=== PATIENT | male | born 1995 ===

== ENCOUNTER 2024-05-28 17:36 | Emergency (ER) | payer OTHER ==
[~2024-05-28] VITALS: Ht 170.2 cm; Wt 71.8 kg
[2024-05-28 17:49] VITALS: BP 145/83; PULSE 46; RESP 14; TEMP 98.7; O2SAT 99
[2024-05-28] MEDS ORDERED: PSEU-191 PO (20:12)
[2024-05-28] MEDS ORDERED: AMOX-457 PO (20:12)
== END 2024-05-28 20:32 | disposition home or self-care (01) ==
LOC: EMS 17:36
DX: S02.31XA Fracture of orbital floor, right side, initial encounter for closed fracture (principal); S02.2XXA Fracture of nasal bones, initial encounter for closed fracture; F12.90 Cannabis use, unspecified, uncomplicated; Y04.0XXA Assault by unarmed brawl or fight, initial encounter; Y93.89 Activity, other specified; Y92.89 Other specified places as the place of occurrence of the external cause; Y99.8 Other external cause status
CPT/HCPCS: 70450; 70486; 99284